=== PATIENT | male | born 1990 | race Caucasian/White ===

== ENCOUNTER 2022-05-02 11:08 | Emergency (ER) | payer OTHER, SELFPAY ==
[2022-05-02 11:19] VITALS: BP 128/92; PULSE 92; RESP 20; TEMP 37.1; O2SAT 99
--- NOTE | 2022-05-02 11:36 | ED.URI ---
HPI - URI/Sore Throat General Chief Complaint: Upper Respiratory Infection Stated Complaint: Cough Time Seen by Provider: 05/02/22 11:36 Source: patient and RN notes reviewed Mode of arrival: ambulatory Limitations: no limitations History of Present Illness HPI Narrative: 31-year-old male presents to the [facility] with complaints of a cough and runny nose since last night. Reports a fever of 99. Has taken Airborne and Zicam times once. Denies any other past medical or surgical history. No other treatment prior to arrival. Requesting a work note Related Data Home Medications Medication Instructions Recorded Confirmed aripiprazole 5 mg tablet 1 tablet PO DAILY 05/02/22 05/02/22 bupropion HCl 300 mg 24 hr tablet, 1 tablet PO DAILY 05/02/22 05/02/22 extended release Allergies Allergy/AdvReac Type Severity Reaction Status Date / Time No Known Allergies Allergy Verified 05/02/22 11:45 Review of Systems Review of Systems: All systems reviewed & are unremarkable except as noted in HPI and below Constitutional: Constitutional: Reports as per HPI, Denies chills and Reports fever(s) Eyes: Eyes: Reports no additional eye complaints ENT: Reports system reviewed and no additional complaints, except as documented Cardiovascular: Cardiovascular: Reports no additional cardiovascular complaints Respiratory: Respiratory: Reports as per HPI, Denies chest congestion, Reports cough, Denies dyspnea and Denies wheezing Gastrointestinal: Gastrointestinal: Reports no additional gastrointestinal complaints Musculoskeletal: Musculoskeletal: Reports no additional musculoskeletal complaints Integumentary/Breasts: Skin/Breast: Reports system reviewed and no additional complaints, except as docu Neurologic: Reports system reviewed and no additional complaints, except as documented Psychiatric: Psychiatric: Reports no additional psychiatric complaints Allergic/Immunologic: Allergic/Immunologic: Reports no additional allergic/immunologic complaints FOR[facility], [facility] Past Medical History Medical History (Updated 05/02/22 @ 17:41 by Cande Ford APRN) Anxiety and depression Surgical History Surgical History (Updated 05/02/22 @ 17:42 by Cande Ford APRN) History of eye removal Right, due to accident Social History Social History (Updated 05/02/22 @ 17:42 by Cande Ford APRN) Living arrangements: with family Gender identity (if verbalized by the patient): Male Comments At the time of my signature, I reviewed and agree with the nursing past medical, surgical, social, and family history. There is no relevant family history pertinent to the patient complaint. Exam Const: General: healthy appearing, no acute distress and alert Nutritional Appearance: well nourished Orientation/consciousness: patient oriented x3 Limitations: no limitations HENMT: Head: normal to inspection Ears: external ears normal Eyes: General: appearance normal, both eyes and all related structures Pupils: Equal, round and reactive pupils present Neck: Neck: normal visual inspection, no lymphadenopathy and no meningeal signs Chest: Chest palpation & inspection: normal inspection of the chest Resp: Effort & Inspection: normal respiratory effort and no use of accessory muscles Auscultation: clear to auscultation bilaterally, no crackles, no rales, no rhonchi and no wheezes Cardio: Rate: regular rate Rhythm: regular rhythm Back/Spine/Pelvis: Cervical Spine: normal cervical lordosis Thoracic/Lumbar Spine: thoracic and lumbar spine normal to inspection Skin: General skin exam: normal color Rashes: no rashes Wounds: no wounds Neuro: General: patient oriented x3, moves all extremities, no meningeal signs and no focal motor deficits Cranial nerves: Yes Equal, round and reactive pupils present Speech: normal speech Gait exam (Neuro): Normal gait present Extrem: General: normal to inspection, full ROM and capillary refill normal Psy
[2022-05-02 21:03] LABS: SARS-CoV-2 RNA PCR Negative
== END 2022-05-02 12:10 | disposition home or self-care (01) ==
PROVIDERS: Emergency Provider Nurse Practitioner
DX: R09.82 Postnasal drip (principal); J06.9 Acute upper respiratory infection, unspecified; Z20.822 Contact with and (suspected) exposure to COVID-19; F41.9 Anxiety disorder, unspecified; F32.A Depression, unspecified; Z86.16 Personal history of COVID-19
CPT/HCPCS: 87804; 99213; C9803; G0463; U0003; U0005

== ENCOUNTER 2022-08-09 12:22 | Emergency (ER) | payer OTHER, SELFPAY ==
[2022-08-09 12:37] VITALS: BP 120/83; PULSE 97; RESP 16; TEMP 36.9; O2SAT 99
--- NOTE | 2022-08-09 12:40 | ED.NAVMDI ---
HPI - Nausea/Vomiting/Diarrhea General Chief complaint: Nausea/Vomiting/Diarrhea Stated complaint: Nausea,Gagging Time Seen by Provider: 08/09/22 12:47 History of Present Illness HPI Narrative: Gelacio Westbrook is a 31 yo male with cold symptoms and swallowing mucous and now feels nauseous. He has not taken anything OTC for his symptom. He has not had a bowel movement since yesterday which is less than normal. He has not eaten today because also typical for him. No change in psych meds. No apparent fever Related Data Home Medications Medication Instructions Recorded Confirmed aripiprazole 5 mg tablet 1 tablet PO DAILY 05/02/22 08/09/22 bupropion HCl 300 mg 24 hr tablet, 1 tablet PO DAILY 05/02/22 08/09/22 extended release Allergies Allergy/AdvReac Type Severity Reaction Status Date / Time No Known Allergies Allergy Verified 05/02/22 11:45 Review of Systems Review of Systems: CONSTITUTIONAL: Denies fever, chills, sweats. EYES: Denies visual changes, redness, discharge. ENT: Denies rhinorrhea, congestion, sore throat, otalgia. CARDIOVASCULAR: Denies chest pain, palpitations, edema. RESPIRATORY: Denies dyspnea, wheezing, cough GASTROINTESTINAL: Mild epigastric abdominal pain, has nausea, vomiting, diarrhea. GENITOURINARY: Denies dysuria, hematuria, abnormal discharge SKIN: Denies rash or itching. NEUROLOGIC: Denies numbness, or focal weakness. PSYCHIATRIC: Denies anxiety or depression. PMFSH Past Medical History Medical History (Updated 08/09/22 @ 12:59 by Lili Estrella CNP) Anxiety and depression Surgical History Surgical History (Updated 05/02/22 @ 17:42 by Cande Ford APRN) History of eye removal Right, due to accident Social History Social History (Updated 05/02/22 @ 17:42 by Cande Ford APRN) Gender identity (if verbalized by the patient): Male Exam Narrative: GENERAL: This is a well-nourished, well-developed patient, in mild distress. HEAD: normocephalic, atraumatic. EYES: . Sclera clear/white. Vision is grossly intact. EARS: External ears normal, . Hearing grossly intact. NOSE: External nose normal without nasal discharge, nares without redness, no rhinorrhea. THROAT: Mucous membranes moist, NECK: Neck supple, non-tender CARDIOVASCULAR: Regular rate and rhythm without murmurs, gallops, or rubs. RESPIRATORY: Clear to auscultation. Breath sounds equal bilaterally. No wheezes, rales, or rhonchi. GASTROINTESTINAL: Abdomen soft, normal bowel sounds complaining of mild pain in the epigastric region little to the left on exam SKIN: warm, intact with no suspicious lesions or rash, good texture and turgor. NEURO: awake, alert, and oriented to person, place and time. There were no obvious focal neurologic abnormalities. Steady gait EXTREMITIES: Normal range of motion. BACK: Nontender without deformity Course Course Emergency Course: Patient here with epigastric pain, nausea-has no problems since yesterday but has really vague complaints Started on Pepcid and given some Zofran He has appointment with his primary care on , if pain worsens he should go to the ER for blood work Level of Care: Express Care Visit Vital Signs Vital signs: Vital Signs Temperature 98.4 F 08/09/22 12:37 Pulse Rate 97 08/09/22 12:37 Respiratory Rate 16 08/09/22 12:37 Blood Pressure 120/83 08/09/22 12:37 Pulse Oximetry 99 08/09/22 12:37 Oxygen Delivery Room Air 08/09/22 12:37 Temperature 98.4 F 08/09/22 12:37 Pulse Rate 97 08/09/22 12:37 Respiratory Rate 16 08/09/22 12:37 Blood Pressure 120/83 08/09/22 12:37 Pulse Oximetry 99 08/09/22 12:37 Oxygen Delivery Room Air 08/09/22 12:37 MDM - Nausea/Vomiting/Diarrhea Differential Diagnosis Differential diagnosis: Likely other (Epigastric pain, versus GERD versus gastritis) Critical Care Time Critical Care Time Critical Care Time: No Discharge Plan Discharge Clinical Impression: Abdominal
[2022-08-09] MEDS: FAMOTIDINE 20 MG TABLET PO (13:03)
== END 2022-08-09 13:07 | disposition home or self-care (01) ==
PROVIDERS: Emergency Provider Nurse Practitioner
DX: R10.13 Epigastric pain (principal); F41.8 Other specified anxiety disorders
CPT/HCPCS: 99213; A9270; G0463

== ENCOUNTER 2023-01-03 09:21 | Emergency (ER) | payer SELFPAY ==
[2023-01-03 09:31] VITALS: BP 130/94; PULSE 101; RESP 16; TEMP 37; O2SAT 100
--- NOTE | 2023-01-03 10:05 | ED.URI ---
HPI - URI/Sore Throat General Chief Complaint: Upper Respiratory Infection Stated Complaint: uri Time Seen by Provider: 01/03/23 10:05 Source: patient and RN notes reviewed Mode of arrival: ambulatory Limitations: no limitations History of Present Illness HPI Narrative: 32-year-old male presented for complaint of sinus congestion and nausea and vomiting over the last 8 days. Endorses low-grade fever, the cough is occasionally productive and worse at night. He denies shortness of breath, wheezing, diarrhea, abdominal pain, fevers or chills. He denies sick contacts. He is taking [id number] medication without relief. MD elicited complaint: cough Related Data Allergies Allergy/AdvReac Type Severity Reaction Status Date / Time No Known Allergies Allergy Verified 01/03/23 09:39 Review of Systems Review of Systems: CONSTITUTIONAL: Denies malaise, chills, sweats, fever EYES: Denies visual changes, redness, or discharge ENT: Reports rhinorrhea, congestion, sinus pain, denies otalgia, sore throat CARDIOVASCULAR: Denies chest pain, palpitations, edema RESPIRATORY: Reports cough, post nasal drainage. Denies dyspnea GASTROINTESTINAL: Denies abdominal pain, diarrhea SKIN: Denies rash or itching PMFSH Past Medical History Medical History Anxiety and depression Surgical History Surgical History History of eye removal Right, due to accident Social History Social History Living arrangements: with family Gender identity (if verbalized by the patient): Male Exam Narrative: GENERAL: Ill-appearing, nontoxic EYES: PERRLA, conjunctivae clear ENT: Mucous membranes moist. Nasal congestion. TM pearly murphy with dull light reflex bilaterally; no tragal tenderness. Oropharynx mildly erythematous without lesions or exudate, no drooling, no hoarseness, no trismus, uvula midline. CHEST: Clear to auscultation, breath sounds equal. HEART: Regular rate and rhythm. No murmur heard. SKIN: Warm, dry, no rash. NEURO: Alert and oriented x3. PSYCH: Normal mood and affect Course Course Emergency Course: Patient is aware of diagnosis, understands and agrees to treatment plan. Anticipatory guidance given. Patient agrees to follow-up as directed and is aware of reasons to seek care at the emergency department. Portions of this record may have been created with voice recognition software Level of Care: Express Care Visit Vital Signs Vital signs: Vital Signs Temperature 98.6 F 01/03/23 09:31 Pulse Rate 101 H 01/03/23 09:31 Respiratory Rate 16 01/03/23 09:31 Blood Pressure 130/94 H 01/03/23 09:31 Pulse Oximetry 100 01/03/23 09:31 Oxygen Delivery Room Air 01/03/23 09:31 Temperature 98.6 F 01/03/23 09:31 Pulse Rate 101 H 01/03/23 09:31 Respiratory Rate 16 01/03/23 09:31 Blood Pressure 130/94 H 01/03/23 09:31 Pulse Oximetry 100 01/03/23 09:31 Oxygen Delivery Room Air 01/03/23 09:31 reviewed MDM - URI/Sore Throat MDM Narrative Medical decision making narrative: Suspect nausea/vomiting related to frequent swelling of postnasal drainage. Advised supportive measures and signs/symptoms to go to the ER. Pt is appropriate for outpt treatment and f/u. Differential Diagnosis Differential diagnosis: Likely upper respiratory infection, sinusitis and viral infection Discharge Plan Discharge Clinical Impression: Upper respiratory infection Qualifiers: URI type: unspecified URI Qualified Code(s): J06.9 - Acute upper respiratory infection, unspecified Patient Disposition: Home, Self-Care Condition: Stable Instructions: Antibiotic Form, Upper Respiratory Infection (ED) Additional Instructions: Take antibiotic as directed Recommend Flonase spray and Zyrtec (or Claritin/Stacie) over the counter Cough syrup may caus
== END 2023-01-03 10:22 | disposition home or self-care (01) ==
PROVIDERS: Emergency Provider Nurse Practitioner Family
DX: J06.9 Acute upper respiratory infection, unspecified (principal)
CPT/HCPCS: 99213; G0463